=== PATIENT | male | born 1940 | race Caucasian/White ===

== ENCOUNTER → 2018-08-19 | Outpatient (CLI) | payer OTHER ==
[~2018-08-19] MED LIST: BACL-19 PO; CARV-39 PO; HYDR-3237 PO; LISI-170 PO; RABE20TA18 PO
[2018-08-19 12:22] LABS: MICROSCOPIC NOT IND
[2018-08-19 12:22] LABS: BASOPHILS # (AUTO) 0.07 x10^3/uL (0-0.1); BASOPHILS % (AUTO) 1 % (0-1); EOSINOPHILS # (AUTO) 0.43 x10^3/uL (0-0.4); EOSINOPHILS % (AUTO) 6 % (1-7); LYMPHOCYTES # (AUTO) 1.25 x10^3/uL (1-3.4); LYMPHOCYTES % (AUTO) 18 % (22-44); MD NO; MEAN CORPUSCULAR HEMOGLOBIN 34.1 pg (27.5-34.5); MEAN CORPUSCULAR HGB CONC 34.5 g/dL (33.2-36.2); MEAN CORPUSCULAR VOLUME 98.7 fL (81-97); MONOCYTES # (AUTO) 0.67 x10^3/uL (0.2-0.8); MONOCYTES % (AUTO) 10 % (2-9); NEUTROPHILS # (AUTO) 4.62 x10^3/uL (1.8-6.8); NEUTROPHILS % (AUTO) 66 % (42-75); PLATELET COUNT 177 x10^3/uL (130-400); RED BLOOD COUNT 4.97 x10^6/uL (4.38-5.82); RED CELL DISTRIBUTION WIDTH 12.7 % (9.4-14.8)
[2018-08-19 12:26] LABS: CULTURE INDICATED? NO
[2018-08-19 12:32] LABS: INTERNATIONAL NORMALIZED RATIO 1.02 (0.93-1.1); PROTHROMBIN TIME 10.8 Seconds (9.6-11.5)
[2018-08-19 12:50] LABS: ALBUMIN 3.6 g/dL (3.4-5.0); ANION GAP 5 mmol/L (5-15); CALCIUM 9.1 mg/dL (8.5-10.1); CHLORIDE 106 mmol/L (98-107)
[2018-08-19 12:53] LABS: ALANINE AMINOTRANSFERASE 34 U/L (12-78); ALKALINE PHOSPHATASE 82 U/L (45-117); BILIRUBIN,TOTAL 1.1 mg/dL (0.2-1.0); CREATININE 1.05 mg/dL (0.7-1.3); TOTAL PROTEIN 7.3 g/dL (6.4-8.2)
[2018-08-19 13:16] LABS: HEMOGLOBIN A1C 5.8 % (4.2-6.3)
== END | disposition home or self-care (01) ==
LOC: STAR 11:11
PROVIDERS: ATTEND Orthopaedic Surgery
DX: Z01.818 Encounter for other preprocedural examination (principal); M17.11 Unilateral primary osteoarthritis, right knee
CPT/HCPCS: 36415; 80053; 81003; 83036; 85025; 85610; 85730; 87081; 87806; 93005; G0475

== ENCOUNTER 2018-08-31 05:19 | Observation (INO) | payer OTHER ==
[2018-08-19 13:06] VITALS: BP 129/62
[~2018-08-31] VITALS: Ht 175.3 cm; Wt 72.6 kg
[2018-08-31] MEDS ORDERED: LACTATED RINGERS 1,000 ML IV SCH (05:57)
[2018-08-31] MEDS ORDERED: GABAPENTIN 300 MG CAPSULE PO ONE (06:00)
[2018-08-31] MEDS ORDERED: ACETAMINOPHEN 500 MG TABLET PO ONE (06:00)
[2018-08-31] MEDS ORDERED: ASPI-496 PO (06:13)
[2018-08-31] MEDS ORDERED: KETOROLAC 60 MG/2 ML ONE (06:25)
[2018-08-31] MEDS ORDERED: TRANEXAMIC ACID 100 MG/ML, 10ML ONE ×4 (06:25)
[2018-08-31] MEDS ORDERED: EPINEPHRINE 1 MG/ML, 1ML ONE (06:26)
[2018-08-31] MEDS ORDERED: ROPIvacaine/PF 0.2%, 20 ML ONE (06:26)
[2018-08-31] MEDS ORDERED: FENTANYL PF 250 MCG/5ML ONE (06:30)
[2018-08-31] MEDS ORDERED: MIDAZOLAM 1 MG/ML, 2ML ONE (06:30)
[2018-08-31] MEDS ORDERED: ONDANSETRON ODT 4 MG PO PRN (07:00)
[2018-08-31] MEDS ORDERED: HYDROmorphone 1 MG/ML, 1ML IV PRN (07:00)
[2018-08-31] MEDS ORDERED: MAGNESIUM HYDROXIDE 8%, 30ML UDC PO PRN (07:00)
[2018-08-31] MEDS ORDERED: ONDANSETRON 2MG/ML, 2ML IV PRN ×2 (07:00→08:00)
[2018-08-31] MEDS ORDERED: BISACODYL 10 MG SUPP PR PRN (07:00)
[2018-08-31] MEDS ORDERED: SENNA/DOCUSATE TABLET PO PRN (07:00)
[2018-08-31] MEDS ORDERED: DIPHENHYDRAMINE 25 MG CAPSULE PO PRN (07:00)
[2018-08-31] MEDS ORDERED: PROMETHAZINE 12.5 MG SUPP PR PRN (07:00)
[2018-08-31] MEDS ORDERED: PROMETHAZINE 25 MG/ML, 1ML IM PRN (07:00)
[2018-08-31] MEDS ORDERED: ALUMINUM/MAG/SIMETHICONE 30 ML UDC PO PRN (07:00)
[2018-08-31] MEDS ORDERED: MORPHINE SULFATE 4 MG/ML, 1ML ONE (07:23)
[2018-08-31] MEDS ORDERED: ONDANSETRON 2MG/ML, 2ML ONE (07:31)
[2018-08-31] MEDS ORDERED: CEFAZOLIN 1,000 MG ONE (07:31)
[2018-08-31] MEDS ORDERED: BUPIVACAINE/PF 0.25% ONE (07:31)
[2018-08-31] MEDS ORDERED: PROPOFOL 10 MG/ML, 20ML ONE (07:31)
[2018-08-31] MEDS ORDERED: DEXAMETHASONE 4 MG/ML, 1ML ONE (07:31)
[2018-08-31] MEDS ORDERED: LIDOCAINE-MPF 2% ,5ML ONE (07:31)
[2018-08-31] MEDS ORDERED: PROMETHAZINE 25 MG/ML, 1ML IV PRN (08:00)
[2018-08-31] MEDS ORDERED: SCOPOLAMINE PATCH, 1.5MG PATCH.TD72 TD PRN (08:00)
[2018-08-31] MEDS ORDERED: ALBUTEROL/IPRATROPIUM 2.5MG/0.5MG, 3 ML NPPB PRN (08:00)
[2018-08-31] MEDS ORDERED: METOPROLOL 1 MG/ML, 5ML IV PRN (08:00)
[2018-08-31] MEDS ORDERED: hydrALAzine 20 MG/ML, 1ML IV PRN (08:00)
[2018-08-31] MEDS ORDERED: OXYcodone 5 MG/5 ML ORAL.SOL UDC PO PRN (08:00)
[2018-08-31] MEDS ORDERED: MIDAZOLAM 1 MG/ML, 2ML IV PRN (08:00)
[2018-08-31] MEDS ORDERED: MEPERIDINE/PF 25MG/0.5ML IVPush PRN (08:00)
[2018-08-31] MEDS ORDERED: TRANEXAMIC ACID 1,000 MG in SODIUM CHLORIDE 0.9% 100 ML IVPB ONE (08:30)
[2018-08-31] MEDS ORDERED: FENTANYL PF 100 MCG/2ML ONE (08:49)
[2018-08-31] MEDS: FENTANYL PF 100 MCG/2ML IV PRN ×2 (08:54→09:00)
[2018-08-31] MEDS ORDERED: OXYcodone 5 MG/5 ML ORAL.SOL UDC ONE (08:58)
[2018-08-31] MEDS: DOCUSATE 100 MG CAPSULE PO SCH ×2 (09:00→23:00)
[2018-08-31] MEDS: TAMSULOSIN 0.4 MG CAP.ER.24H PO SCH (09:00)
[2018-08-31] MEDS ORDERED: HYDROmorphone 2 MG/ML, 1ML ONE (09:10)
[2018-08-31] MEDS: HYDROmorphone 2 MG/ML, 1ML IVPush PRN ×2 (09:15→09:25)
[2018-08-31] MEDS: BACLOFEN MC SCH ×3 (10:30→23:32)
[2018-08-31] MEDS: D5%-0.45NACL+KCL 20MEQ 1,000 ML IV SCH ×2 (12:00→22:59)
[2018-08-31] MEDS: CEFAZOLIN PMX 1GM/50ML 50 ML IVPB SCH ×2 (15:55→22:59)
[2018-08-31] MEDS: OXYcodone IR 5MG TABLET PO PRN (16:40)
[2018-08-31] MEDS: ACETAMINOPHEN 650 MG/20.3 ML UDC PO PRN (16:40)
[2018-08-31 18:54] VITALS: BP 131/58
[2018-08-31] MEDS: ASPIRIN 81 MG TABLET EC PO SCH (18:56)
[2018-08-31] MEDS: CARVEDILOL 12.5 MG TABLET PO SCH (18:56)
[2018-08-31] MEDS: LISINOPRIL 10 MG TABLET PO SCH (18:56)
[2018-08-31 20:43] VITALS: BP 124/62
[2018-08-31] MEDS ORDERED: LISINOPRIL 10 MG TABLET PO SCH (21:00)
[2018-09-01 00:14] VITALS: BP 130/65
[2018-09-01] MEDS: OXYcodone IR 5MG TABLET PO PRN ×2 (03:58→08:16)
[2018-09-01 04:40] VITALS: BP 136/73
[2018-09-01] MEDS ORDERED: DEXAMETHASONE 4 MG/ML, 1ML IVPush SCH (06:00)
[2018-09-01] MEDS: ASPIRIN 81 MG TABLET EC PO SCH (06:11)
[2018-09-01] MEDS: CARVEDILOL 12.5 MG TABLET PO SCH (06:11)
[2018-09-01] MEDS ORDERED: KETOROLAC 30 MG/1 ML IV SCH (07:00)
[2018-09-01 07:10] VITALS: BP 131/64
[2018-09-01] MEDS: D5%-0.45NACL+KCL 20MEQ 1,000 ML IV SCH (08:00)
[2018-09-01] MEDS: LISINOPRIL 10 MG TABLET PO SCH ×2 (08:00→08:16)
[2018-09-01] MEDS: ACETAMINOPHEN 650 MG/20.3 ML UDC PO PRN (08:15)
[2018-09-01] MEDS: DOCUSATE 100 MG CAPSULE PO SCH (08:15)
[2018-09-01] MEDS: TAMSULOSIN 0.4 MG CAP.ER.24H PO SCH (08:16)
[2018-09-01] MEDS ORDERED: DOCU-131 PO (08:53)
[2018-09-01] MEDS ORDERED: ASPI81TA45 PO (08:53)
[2018-09-01] MEDS ORDERED: ONDA4TAB7 PO (08:54)
[2018-09-01] MEDS ORDERED: TRAM50TA2 PO (08:55)
[2018-09-01] MEDS ORDERED: OXYC5CAP2 PO (08:55)
[2018-09-01] MEDS ORDERED: CELE200C PO (08:55)
[2018-09-01] MEDS ORDERED: RABEPRAZOLE 20 MG PO SCH (09:00)
== END 2018-09-01 11:43 | disposition home or self-care (01) ==
LOC: OUT 05:19 → ORIP 06:42 → 4NOR 09:52 → DCLOUNGE 09-01 11:20
PROVIDERS: ADMIT Orthopaedic Surgery; ATTEND Orthopaedic Surgery
DX: M17.11 Unilateral primary osteoarthritis, right knee (principal); I10 Essential (primary) hypertension; E78.2 Mixed hyperlipidemia; Z95.2 Presence of prosthetic heart valve
CPT/HCPCS: 27447; 36415; 73560; 85014; 85018; 96365; 96366; 96375; 97116; 97162; 97165; 97530; C1713; C1776; G0378; G8978; G8979; G8980; J0171; J0690; J1100; J1170; J1885; J2250; J2405; J2704; J2795; J3010; J3480; J3490; J7120